=== PATIENT | female | born 2000 | race Hispanic/Latino ===

== ENCOUNTER 2020-08-27 14:20 | Emergency (ER) | payer SELFPAY ==
[~2020-08-27] VITALS: Ht 154.9 cm; Wt 104.3 kg
== END 2020-08-27 15:06 | disposition home or self-care (01) ==
LOC: ER 15:06
DX: J02.0 Streptococcal pharyngitis (principal)
CPT/HCPCS: 99282

== ENCOUNTER 2020-11-28 23:14 | Emergency (ER) | payer SELFPAY ==
[~2020-11-28] VITALS: Ht 154.9 cm; Wt 104.3 kg
== END 2020-11-28 23:40 | disposition home or self-care (01) ==
LOC: ER 23:40
DX: U07.1 COVID-19 (principal); R05 Cough; R50.9 Fever, unspecified; R53.81 Other malaise

== ENCOUNTER 2022-11-11 23:11 | Emergency (ER) | payer SELFPAY ==
[~2022-11-11] VITALS: Ht 154.9 cm; Wt 104.3 kg
[2022-11-11 23:29] LABS: BASOPHILS % 0.3 % (0.0-1.0); EOSINOPHILS % 0.3 % (0.0-6.0); HEMATOCRIT 38.5 % (34.2-44.1); HEMOGLOBIN 11.8 g/dL (12.0-16.0); LYMPHOCYTES # (AUTO) 2.2 (1.0-3.2); MEAN CORPUSCULAR HEMOGLOBIN 23.3 pg (28-32); MEAN CORPUSCULAR HGB CONC 30.6 g/dL (31-35); MEAN CORPUSCULAR VOLUME 76.1 fL (81-99); MONOCYTES # (AUTO) 0.6 (0.2-0.8); NEUTROPHILS # (AUTO) 8.7 (2.1-6.9); NEUTROPHILS % 75.1 % (38.7-80.0); PLATELET COUNT 335 x10e3/uL (140-360); RED BLOOD COUNT 5.06 x10e6/uL (3.6-5.1); RED CELL DISTRIBUTION WIDTH 18.6 % (11.7-14.4)
[2022-11-11] MEDS ORDERED: HYDROXYZINE HCL 25 MG TAB PO ONE (23:30)
[2022-11-11 23:46] LABS: ANION GAP 13.7 mmol/L (8-16); CALCIUM 9.5 mg/dL (8.4-10.2); CREATININE, SERUM 0.76 mg/dL (0.57-1.11); POTASSIUM 3.7 mmol/L (3.5-5.1)
[2022-11-12] MEDS ORDERED: HYDROXYZINE HCL25 MG PO (00:16)
[2022-11-12 00:22] VITALS: BP 138/98; PULSE 92; RESP 17; TEMP 99.8; O2SAT 99
== END 2022-11-12 00:27 | disposition home or self-care (01) ==
LOC: ER 23:15
DX: R00.2 Palpitations (principal); F41.9 Anxiety disorder, unspecified; R94.31 Abnormal electrocardiogram [ECG] [EKG]
CPT/HCPCS: 36415; 71045; 80048; 84484; 84702; 85025; 85379; 93005; 99283; J3410

== ENCOUNTER 2022-11-25 10:36 | Emergency (ER) | payer SELFPAY ==
[~2022-11-25] VITALS: Ht 154.9 cm; Wt 104.8 kg
[~2022-11-25 10:36] MED LIST: HYDROXYZINE HCL25 MG PO
[2022-11-25] MEDS ORDERED: IBUPROFEN 600 MG TAB PO STA (11:46)
[2022-11-25 13:21] LABS: BASOPHILS % 0.2 % (0.0-1.0); EOSINOPHILS # (AUTO) 0.1 (0.0-0.4); EOSINOPHILS % 0.5 % (0.0-6.0); HEMATOCRIT 36.1 % (34.2-44.1); HEMOGLOBIN 11.2 g/dL (12.0-16.0); LYMPHOCYTES # (AUTO) 1.6 (1.0-3.2); LYMPHOCYTES % 17.2 % (18.0-39.1); MEAN CORPUSCULAR HEMOGLOBIN 23.5 pg (28-32); MEAN CORPUSCULAR VOLUME 75.7 fL (81-99); MONOCYTES # (AUTO) 0.6 (0.2-0.8); MONOCYTES % 6.6 % (4.4-11.3); NEUTROPHILS % 75.3 % (38.7-80.0); PLATELET COUNT 289 x10e3/uL (140-360); RED BLOOD COUNT 4.77 x10e6/uL (3.6-5.1); RED CELL DISTRIBUTION WIDTH 18.2 % (11.7-14.4)
[2022-11-25 13:39] LABS: ALBUMIN 3.7 g/dL (3.5-5.0); ALBUMIN/GLOBULIN RATIO 0.9 (0.8-2.0); ANION GAP 13.5 mmol/L (8-16); CALCIUM 9.4 mg/dL (8.4-10.2); CREATININE, SERUM 0.66 mg/dL (0.57-1.11); POTASSIUM 3.5 mmol/L (3.5-5.1)
[2022-11-25 14:15] LABS: CLARITY,URINE CLEAR (CLEAR); COLOR,URINE YELLOW (YELLOW)
[2022-11-25 14:16] LABS: KETONES,URINE NEGATIVE (NEGATIVE); LEUKOCYTE ESTERASE ,URINE NEGATIVE (NEGATIVE); NITRITE,URINE NEGATIVE (NEGATIVE); PROTEIN,URINE DIPSTICK NEGATIVE (NEGATIVE); URINE UROBILINOGEN 0.2 mg/dL (0.2 - 1)
[2022-11-25 14:28] LABS: BACTERIA,URINE FEW /HPF; EPITHELIAL CELLS,URINE MODERATE /LPF; WBC,URINE (MAN) 0-5 /HPF (0-5)
[2022-11-25] MEDS ORDERED: IBUPROFEN600 MG PO (16:10)
[2022-11-25 17:02] VITALS: O2SAT 100
== END 2022-11-25 17:18 | disposition home or self-care (01) ==
LOC: ER 10:50
DX: R10.30 Lower abdominal pain, unspecified (principal); N13.2 Hydronephrosis with renal and ureteral calculous obstruction
CPT/HCPCS: 36415; 74176; 80053; 81001; 81025; 83690; 85025; 99284

== ENCOUNTER 2024-12-31 15:46 | Emergency (ER) | payer SELFPAY ==
[~2024-12-31] VITALS: Ht 157.5 cm; Wt 122.5 kg
[~2024-12-31 15:46] MED LIST changes: +BACTRIM DS TAB1 EACH PO; +CEFDINIR300 MG PO; +CEPHALEXIN500 MG PO; +FLOMAX0.4 MG PO; +IBUPROFEN600 MG PO; +KETOROLAC TROME10 MG PO; +ONDANSETRON ODT4 MG PO
[2024-12-31 16:31] VITALS: PULSE 91; RESP 17; TEMP 98.7; O2SAT 100
[2024-12-31] MEDS ORDERED: CYCLOBENZAPRINE10 MG PO (17:35)
[2024-12-31] MEDS: KETOROLAC TROMETHAMINE 60 MG/2 ML VIAL IM ONE (17:37)
[2024-12-31] MEDS: CYCLOBENZAPRINE HCL 10 MG TAB PO ONE (17:37)
== END 2024-12-31 17:53 | disposition home or self-care (01) ==
LOC: ER 16:27
DX: S29.012A Strain of muscle and tendon of back wall of thorax, initial encounter (principal); X50.1XXA Overexertion from prolonged static or awkward postures, initial encounter; Y99.0 Civilian activity done for income or pay; D64.9 Anemia, unspecified; F41.9 Anxiety disorder, unspecified; E28.2 Polycystic ovarian syndrome; Z87.442 Personal history of urinary calculi
CPT/HCPCS: 81025; 99283; J1885

== ENCOUNTER 2025-01-11 22:25 | Emergency (ER) | payer OTHER ==
[~2025-01-11] VITALS: Ht 157.5 cm; Wt 122.5 kg
[~2025-01-11 22:25] MED LIST changes: +CYCLOBENZAPRINE10 MG PO
[2025-01-11 23:19] LABS: LEUKOCYTE ESTERASE ,URINE NEGATIVE (NEGATIVE); PROTEIN,URINE DIPSTICK NEGATIVE (NEGATIVE); URINE UROBILINOGEN 0.2 mg/dL (0.2 - 1)
[2025-01-11 23:20] LABS: PREGNANCY TEST, URINE NEGATIVE (NEGATIVE)
[2025-01-11 23:24] LABS: EPITHELIAL CELLS,URINE MODERATE /LPF
[2025-01-12] MEDS: KETOROLAC TROMETHAMINE 60 MG/2 ML VIAL IM ONE (00:16)
[2025-01-12] MEDS ORDERED: ONDANSETRON ODT4 MG SL (01:29)
[2025-01-12] MEDS ORDERED: KETOROLAC TROME10 MG PO (01:29)
[2025-01-12] MEDS ORDERED: CEFDINIR300 MG PO (01:29)
[2025-01-12 01:37] VITALS: PULSE 92; RESP 16; TEMP 98.4; O2SAT 100
== END 2025-01-12 01:39 | disposition home or self-care (01) ==
LOC: ER 23:59
DX: N20.0 Calculus of kidney (principal); N39.0 Urinary tract infection, site not specified; Z87.442 Personal history of urinary calculi; F41.9 Anxiety disorder, unspecified; E28.2 Polycystic ovarian syndrome
CPT/HCPCS: 74176; 81001; 81025; 99283; J1885